=== PATIENT | female | born 1960 | race Caucasian/White ===

== ENCOUNTER → 2016-08-09 10:24 | Outpatient (CLI) | payer OTHER | END | disposition home or self-care (01) | LOC: D.RAD 10:24 | DX: Z02.71 Encounter for disability determination (principal) ==

== ENCOUNTER → 2017-03-15 18:47 | Outpatient (CLI) | payer BC ==
[~2017-03-15 18:47] MED LIST: BUTALB-APAP-CA1 EACH PO; DICLOFENAC SODI50 MG PO; LEVOTHYROXINE100 MCG PO; NEURONTIN600 MG PO; NORVASC5 MG PO; OMEPRAZOLE40 MG PO; PERCOCET 10/3251 TA1; PROZAC20 MG PO; SEROQUEL50 MG PO; ZANAFLEX4 MG PO; ZESTRIL20 MG PO; ZOCOR20 MG PO
[2017-04-06 07:25] VITALS: BMI 32.6
== END | disposition home or self-care (01) ==
LOC: D.LABREF 18:47
DX: N39.0 Urinary tract infection, site not specified (principal); R31.9 Hematuria, unspecified

== ENCOUNTER → 2017-03-18 10:23 | Outpatient (CLI) | payer BC ==
[2017-04-06 07:25] VITALS: BMI 32.6
== END | disposition home or self-care (01) ==
LOC: D.CT 10:23
DX: R31.21 Asymptomatic microscopic hematuria (principal)

== ENCOUNTER 2017-04-06 05:20 | Day surgery (SDC) | payer BC ==
[2017-04-05 16:14] LABS: BASOPHILS 0.1 % (0-2); EOSINOPHILS 1.4 % (0-7); HEMATOCRIT 39.7 % (36.0-48.0); HEMOGLOBIN 13.1 g/dL (12-16); IMMATURE GRANULOCYTES 0.1 % (0-5); LYMPHOCYTES 34.2 % (15-50); MCH 31.3 pg (26.0-34.0); MEAN PLATELET VOLUME 9.1 fL (7.4-10.4); MONOCYTES 4.4 % (2-11); NEUTROPHILS 59.8 % (40-80); RBC 4.18 10x6/uL (4.00-5.40); RDW 13.7 % (11.5-14.5); WBC 7.1 10x3/uL (4.8-10.8)
[2017-04-05 16:17] LABS: PLATELET COUNT 246 10x3/uL (130-400)
[2017-04-05 16:27] LABS: INR 0.97 (0.85-1.17); PROTIME 12.4 SECONDS (11.6-15.0)
[2017-04-05 16:28] LABS: APTT 32.4 SECONDS (22.8-39.4)
[2017-04-05 16:38] LABS: ALBUMIN 3.9 g/dL (3.4-5.0); ANION GAP 10.2 mmol/L (8-16); BILIRUBIN - TOTAL 0.11 mg/dL (0.2-1.3); CARBON DIOXIDE 28.9 mmol/L (21.0-32.0); CREATININE - SERUM 0.9 mg/dL (0.6-1.3); POTASSIUM - SERUM 4.1 mmol/L (3.5-5.1); PROTEIN - SERUM 7.7 g/dL (6.4-8.2)
[~2017-04-06] VITALS: Ht 167.6 cm; Wt 91.6 kg
--- NOTE | ~2017-04-06 | OP ---
PATIENT NAME: BRENDAN VALLEJO MEDICAL RECORD: [id number] :60 LOCATION:D.OPS ADMISSION DATE: SURGEON: CARLOS GUAJARDO MD DATE OF OPERATION: 04/06/2017 SURGEON: Carlos Guajardo MD ANESTHESIA: General anesthesia by Clint Esteban CRNA PREOPERATIVE DIAGNOSIS: Microscopic hematuria. PROCEDURE: Cystoscopy. FINDINGS: Single ureteral orifices bilaterally. No bladder tumors. Patchy areas of bladder inflammation in the dome and anterior wall of the bladder. ESTIMATED BLOOD LOSS: None. CLINICAL HISTORY: This is a 56-year-old female, who was referred by her primary care physician for microscopic hematuria. She also complains of symptoms of stress urinary incontinence. She is a smoker, 1 pack per day for 30 years. She also has a history of IV drug abuse including cocaine and amphetamines as well as marijuana smoking. We performed hematuria workup on her. She had a CT scan of the abdomen and pelvis, which showed no abnormalities in the renal system or elsewhere. Urine cytology was benign. She comes today for cystoscopy. She is allergic to no medications. We gave her Ancef 2 grams IV speech correction consultant to the OR. The patient was extremely nervous and although she was originally scheduled for TIVA, we gave her general anesthetic instead at her request. DESCRIPTION OF PROCEDURE: The patient was given induction of general anesthesia. She was placed in the dorsal lithotomy position and prepped and draped. A 17-Tajik cystoscope was used for visualization. She has some patchy areas of inflammation of the bladder wall and some urethral polyps which are benign. No bladder tumors were seen. At the end of the procedure, the bladder was fully emptied through the cystoscope sheath and then the scope was removed. The patient was awakened and brought to the recovery room. I will see her in followup in 1-2 weeks' time to discuss the stress urinary incontinence and reexamine her for that. At the time of her initial visit when I examined her, she did not exhibit any stress incontinence. TRANSINT:[id number] Voice Confirmation ID: [id number] DOCUMENT ID: [id number] CARLOS GUAJARDO MD at 0752 CC: [id number] DICTATION DATE: 04/06/17 0935 OPERATIONS ADVISOR: 04/06/17 1134 [facility] 04/06/[address] [id number]
[2017-04-06] MEDS ORDERED: LEVOTHYROXINE100 MCG PO (07:19)
[2017-04-06] MEDS ORDERED: DICLOFENAC SODI50 MG PO (07:20)
[2017-04-06] MEDS ORDERED: ZOCOR20 MG PO (07:20)
[2017-04-06] MEDS ORDERED: PROZAC20 MG PO (07:20)
[2017-04-06] MEDS ORDERED: PERCOCET 10/3251 TA1 (07:21)
[2017-04-06] MEDS ORDERED: SEROQUEL50 MG PO (07:21)
[2017-04-06] MEDS ORDERED: BUTALB-APAP-CA1 EACH PO (07:22)
[2017-04-06] MEDS ORDERED: NEURONTIN600 MG PO (07:22)
[2017-04-06] MEDS ORDERED: ZESTRIL20 MG PO (07:23)
[2017-04-06] MEDS ORDERED: NORVASC5 MG PO (07:23)
[2017-04-06] MEDS ORDERED: OMEPRAZOLE40 MG PO (07:24)
[2017-04-06] MEDS ORDERED: ZANAFLEX4 MG PO (07:24)
[2017-04-06 07:25] VITALS: Ht 167.6 cm; Wt 91.6 kg
== END 2017-04-06 11:10 | disposition home or self-care (01) ==
LOC: D.OPS 05:20 → D.PAN 09:15 → D.OPS 11:10
PROVIDERS: Anesthesiology
DX: R31.29 Other microscopic hematuria (principal); F17.200 Nicotine dependence, unspecified, uncomplicated; I10 Essential (primary) hypertension; E03.9 Hypothyroidism, unspecified; K21.9 Gastro-esophageal reflux disease without esophagitis; J44.9 Chronic obstructive pulmonary disease, unspecified; B19.20 Unspecified viral hepatitis C without hepatic coma; Z01.812 Encounter for preprocedural laboratory examination